=== PATIENT | male | born 1965 | race Caucasian/White ===

== ENCOUNTER 2024-04-10 07:25 | Outpatient (CLI) | payer BC, OTHER ==
[~2024-04-10 07:25] MED LIST: ENOX40SY7 SUBCUT; NAPR220C15 PO
== END 2024-04-10 23:59 | disposition home or self-care (01) ==
LOC: MRI 07:25
PROVIDERS: ATTEND Family Medicine
DX: M19.011 Primary osteoarthritis, right shoulder (principal); M89.311 Hypertrophy of bone, right shoulder; M25.411 Effusion, right shoulder; M75.51 Bursitis of right shoulder; M24.011 Loose body in right shoulder; M75.21 Bicipital tendinitis, right shoulder; M65.811 Other synovitis and tenosynovitis, right shoulder
CPT/HCPCS: 73221

== ENCOUNTER 2024-12-27 07:25 | Day surgery (SDC) | payer OTHER ==
--- NOTE | 2024-12-21 15:38 | ELECTROCARDIOGRAPH REPORT ---
[facility] Test Date: 2024-12-21 Test Time: 15:36:12 Pat Name: MARY BEDOYA Department: PRE/OP CARDIOLOGY Room: Gender: M System Manager: ISAMAR : 1965 Requested By: LUZ FREEMAN Order Number: [id number] Reading MD: Dr. ANISHA Damon Measurements Intervals [place] Rate: 48 P: 66 MT: 143 QRS: -48 QRSD: 93 T: 32 QT: 442 QTc: 395 Interpretive Statements Sinus bradycardia Left anterior fascicular block Electronically Signed On 12-21-2024 19:01:[address] ANSIHA Damon Please click the below link to view image of tracing.
[2024-12-21 16:02] LABS: BASOPHILS # (AUTO) 0.2 X10'3 (0-0.2); EOSINOPHILS # (AUTO) 0.4 X10'3 (0-0.9); EOSINOPHILS % (AUTO) 5.2 % (0-6); LYMPHOCYTES # (AUTO) 1.3 X10'3 (1.1-4.8); LYMPHOCYTES % (AUTO) 15.9 % (21-51); MEAN CORPUSCULAR HEMOGLOBIN 31.8 PG (27.0-31.0); MEAN CORPUSCULAR HGB CONC 34.7 g/dL (33.0-36.5); MEAN CORPUSCULAR VOLUME 91.5 FL (78-98); MEAN PLATELET VOLUME 10.3 FL (7.4-10.4); MONOCYTES # (AUTO) 0.5 X10'3 (0-0.9); MONOCYTES % (AUTO) 6.5 % (2-12); NEUTROPHILS # (AUTO) 5.7 X10'3 (1.8-7.7); NEUTROPHILS % (AUTO) 69.9 % (42-75); PRE OP HEMATOCRIT 41.3 % (42.0-52.0); PRE OP HEMOGLOBIN 14.3 g/dL (14.0-17.9); PRE OP PLATELET COUNT 127 X10'3 (140-440); PRE OP WHITE BLOOD COUNT 8.1 10'3 (4.8-10.8); RED BLOOD COUNT 4.52 X10'6 (4.70-6.10); RED CELL DISTRIBUTION WIDTH 13.4 % (11.5-14.5)
[2024-12-21 16:06] LABS: BASOPHILS % (AUTO) 1.5 % (0-1)
[2024-12-21 16:16] LABS: ALBUMIN 3.8 G/DL (3.4-5.0); ALBUMIN/GLOBULIN RATIO 1.2 (1.1-1.5); ALKALINE PHOSPHATASE 63 IU/L (46-116); BLOOD UREA NITROGEN 10 MG/DL (7-18); BUN/CREATININE RATIO 11.6 (10.0-20.0); CALCIUM 8.5 MG/DL (8.5-10.1); CHLORIDE 104 MMOL/L (99-107); CREATININE 0.86 MG/DL (0.60-1.10); PRE OP ALT 39 U/L (30-65); PRE OP ANION GAP 6 (8-16); PRE OP AST 22 U/L (10-37); PRE OP BILIRUB, TOTAL 0.6 MG/DL (0.0-1.0); PRE OP POTASSIUM 4.3 MMOL/L (3.4-5.1); PRE OP SODIUM 139 MMOL/L (135-145); TOTAL CARBON DIOXIDE 28.8 MMOL/L (24-32); eGFR 90 ML/MIN
[2024-12-21 16:22] LABS: PRE OP GLUCOSE 215 MG/DL (70-104)
[2024-12-21 17:50] LABS: PLATELET ESTIMATE DECREASED; TOTAL CELLS COUNTED 100
[2024-12-27] VITALS (16 sets, daily range): BP systolic 110–139; BP diastolic 63–88; PULSE 46–63; RESP 12–16; TEMP 97.6; O2SAT 93–100
[~2024-12-27] VITALS: Ht 170.2 cm; Wt 74.8 kg
[~2024-12-27 07:25] MED LIST changes: +BUPIVAcaine 2.5mg/ml inj 50ml vial (contains preservative) ONE; -ENOX40SY7 SUBCUT; +LIDOcaine 1% 30ml preserv. free vial ONE; -NAPR220C15 PO; +NO HOME MEDS
[2024-12-27] MEDS: ceFAZolin 2gm in dextrose, iso 50 ML IV ONE (08:09)
[2024-12-27] MEDS: tamsulosin 0.4mg capsule PO ONE (08:09)
[2024-12-27] MEDS: ringers solution, lacted 1,000 ML IV SCH (08:09)
[2024-12-27] MEDS: famotidine 20mg tablet PO ONE (08:09)
[2024-12-27] MEDS ORDERED: labetalol 20mg/4ml (5mg/ml) syringe IV PRN (08:15)
[2024-12-27] MEDS ORDERED: ondansetron/PF 4mg/2ml inj IV PRN (08:15)
[2024-12-27] MEDS ORDERED: enalaprilat 1.25mg/ml 2ml vial IV PRN (08:15)
[2024-12-27] MEDS ORDERED: proCHLORperazine 10 MG/2 ml inj IV PRN (08:15)
[2024-12-27] MEDS ORDERED: morphine 2 MG/ML inj. syringe IV PRN (08:15)
[2024-12-27] MEDS ORDERED: meperidine/PF 25mg/ml syringe IV PRN ×3 (08:15)
[2024-12-27] MEDS ORDERED: ringers solution, lacted 1,000 ML IV SCH (08:15)
[2024-12-27] MEDS ORDERED: morphine 4 MG/ML inj SYRINge IV PRN (08:15)
[2024-12-27] MEDS: insulin regular, human 10 units/0.1 ml syringe SQ ONE (09:19)
[2024-12-27] MEDS ORDERED: fentaNYL/PF 50MCG/1 ML 2ML syringe ONE (10:12)
[2024-12-27] MEDS ORDERED: LIDOcaine 1%/PF 5ML 10 MG/ML VIAL ONE (10:13)
[2024-12-27] MEDS ORDERED: midazolam 1 mg/ML 2ml injection ONE (10:13)
[2024-12-27] MEDS ORDERED: propofol inj 20 ML IV ONE (10:13)
[2024-12-27] MEDS ORDERED: sevoflurane 250ml liquid IH ONE (10:36)
[2024-12-27] MEDS ORDERED: rocuronium 10mg/ml inj IV ONE (10:38)
[2024-12-27] MEDS ORDERED: ondansetron/PF 4mg/2ml inj ONE (10:45)
[2024-12-27] MEDS ORDERED: dexamethasone sod phosphate 4mg/ml inj. ONE (10:45)
[2024-12-27] MEDS ORDERED: acetaminophen 1,000mg/100ml IV 100 ML IV ONE (11:14)
[2024-12-27] MEDS ORDERED: HYDROcodone/acetaminophen 5mg/325mg tablet PO PRN (11:55)
--- NOTE | 2024-12-27 11:59 | OPERATIVE REPORT ---
Operative Report Providers to CC: MICKEY FREEMAN MD ~ Date of Procedure: Dec 27, 2024 Pre-Operative Diagnosis: Right inguinal hernia Post-Operative Diagnosis SAME as PRE-Op Procedure Performed Robotic assisted, laparoscopic right inguinal hernia repair with mesh Surgeon: Mickey Freeman MD FACS Manager Of Recruiting None Anesthesiologist: Davin Mckee Type of Anesthesia: General Findings: Moderate-sized indirect right inguinal hernia Wound class I Complications None Prosthetics\Implants used: Large Dextile mesh Estimated Blood Loss: Minimal Specimen Removed: None Description of Procedure: Patient was brought to the operating room and identified by the nursing staff and the attending physician. Patient was placed supine and general anesthesia was induced. Patient's abdomen was prepped and draped in standard sterile fashion. Preoperative antibiotics were given. Supraumbilical incision was made to allow for standard Gray entry technique. Laparoscope was inserted after insufflation. Bilateral, 8.5 mm robotic trochars were placed under laparoscopic guidance following administration of local anesthetic. The Profilepasser robotic arm was docked to the patient and instruments placed intra-abdominally under laparoscopic visualization. The left hemipelvis was examined and showed no evidence of left inguinal hernia. An indirect hernia was identified on the right side. Hernia sac was moderate in size. A rent was created in the peritoneum from the median umbilical fold and carried out laterally towards the anterior superior iliac spine. Preperitoneal flap was created and carried down to the symphysis pubis. The retropubic space of Retzius was developed and the bladder swept medially. Dissection was carried out laterally until an indirect hernia sac was identified. This was moderate in size. Hernia sac was completely dissected away from the cord structures and reduced. The critical view of the myopectineal orifice was achieved. Dissection was carried out laterally to allow space for mesh deployment. A large, Dextile mesh and suture was passed intra-abdominally. Mesh was laid in the preperitoneal space covering both indirect, direct, and potential femoral and obturator hernias. Mesh laid without wrinkles or folds. 3 tacking sutures using 0 Ethibond were used to fix the mesh at the symphysis pubis, rectus abdominis, and just anterior to the anterior superior iliac spine. The peritoneal rent was then closed with running, 2/0, absorbable locking suture. Spicer were retrieved. Abdomen was deflated and secondary trochars removed. Fascia at the umbilical port site was closed with 0 Vicryl sutures. Skin incisions were closed with 4-0 Monocryl sutures in a subcuticular fashion. Sterile dressings were applied. Patient was awakened and taken to the postanesthesia care unit in stable condition. MICKEY FREEMAN MD Dec 27, 2024 11:59
== END 2024-12-27 15:08 | disposition home or self-care (01) ==
LOC: PAS 07:25
PROVIDERS: ATTEND Surgery
DX: K40.90 Unilateral inguinal hernia, without obstruction or gangrene, not specified as recurrent (principal); I44.4 Left anterior fascicular block; Z79.899 Other long term (current) drug therapy; Z98.890 Other specified postprocedural states
CPT/HCPCS: 36415; 49650; 80053; 82948; 83036; 85025; 93005; C1781; J0131; J0690; J1100; J1815; J2003; J2250; J2405; J2704; J2710; J3010; J3490; J7030; J7120; S2900; Z7506; Z7508; Z7512; 85007; A4215; A4314; A4618